=== PATIENT | female | born 2000 | race Caucasian/White ===

== ENCOUNTER 2022-01-12 03:15 | Outpatient (CLI) | payer BC, MEDICAID, SELFPAY ==
[2022-01-12] MEDS: Inhaler, Assist Device 1 EACH MC (08:44)
[2022-01-12] MEDS: Albuterol HFA 18 GM 200 PUFF INH IH (08:44)
--- NOTE | 2022-01-18 13:58 | W.PFT ---
Date of service: 01/12/22 Time of Service: 08:07 Pulmonary Function Test Result Requesting Provider Gaston Yung Indications: Dyspnea Interpretation Spirometry: There is no airflow limitation. There is no significant bronchodilator response. Impression Normal spirometry. Clinical Correlation therefore is recommended.
== END 2022-01-12 03:16 | disposition home or self-care (01) ==
LOC: RT 03:15
PROVIDERS: PCP Nurse Practitioner Family; Visit Provider Physician Assistant
DX: Z01.818 Encounter for other preprocedural examination (principal); R06.00 Dyspnea, unspecified
CPT/HCPCS: 94060

== ENCOUNTER → 2022-03-18 18:06 | Outpatient (CLI) | payer BC, MEDICAID, SELFPAY ==
--- NOTE | 2022-03-18 | DI.RAD_ITS ---
Exam(s) XR ANKLE RT COMPLETE EXAM: XR ANKLE RT COMPLETE CLINICAL HISTORY: FOOT PAIN ANKLE PAIN RIGHT. TECHNIQUE: 2D digital imaging was performed of the right ankle. Three images were obtained. AP, la teral and oblique views were obtained. COMPARISON: No exams were available for comparison FINDINGS: BONES: No acute fracture is present. No bony destructive lesion is seen. JOINTS: The ankle mortise is normally aligned. SOFT TISSUE: Normal. IMPRESSION: Unremarkable radiographs of the right ankle. DATA REPOSITORY: RADIATION DOSE DELIVERED:
--- NOTE | 2022-03-18 | DI.RAD_ITS ---
Exam(s) XR FOOT RT COMPLETE EXAM: XR FOOT RT COMPLETE CLINICAL HISTORY: RIGHT FOOT PAIN TWISTED. TECHNIQUE: 2D digital imaging was performed of the right foot. Three images were obtained. AP, obl ique and lateral views were obtained. COMPARISON: No exams were available for comparison FINDINGS: BONES: No acute fracture is present. No bony destructive lesion is seen. JOINTS: No dislocation present. SOFT TISSUE: Normal. IMPRESSION: Unremarkable radiographs of the right foot. DATA REPOSITORY: RADIATION DOSE DELIVERED:
--- NOTE | 2022-03-18 19:21 | DI.VRAD_ITS ---
PROCEDURE INFORMATION: Exam: XR Right Ankle Exam date and time: 03/18/2022 6:35 PM Age: 21 years old Clinical indication: Pain; Ankle; Right; Additional info: Rolled ankle TECHNIQUE: Imaging protocol: Radiologic exam of the Right ankle. Views: 3 or more views. COMPARISON: No relevant prior studies available. FINDINGS: Bones/joints: No displaced fractures or dislocations. Soft tissues: Mild soft tissue swelling. IMPRESSION: No acute findings. Dictated and Authenticated by: Paulino Dickerson MD. Ordering:SHAUNA Oliveira MD
--- NOTE | 2022-03-18 19:22 | DI.VRAD_ITS ---
PROCEDURE INFORMATION: Exam: XR Right Foot Exam date and time: 03/18/2022 6:37 PM Age: 21 years old Clinical indication: Pain; Foot; Right; Additional info: Rolled ankle and foot TECHNIQUE: Imaging protocol: Radiologic exam of the Right foot. Views: 3 or more views. COMPARISON: CR XR ANKLE RT COMPLETE 03/18/2022 6:35 PM FINDINGS: Bones/joints: Normal. Soft tissues: Normal. IMPRESSION: No acute findings. Dictated and Authenticated by: Paulino Dickerson MD. Ordering:SHAUNA Oliveira MD
== END ==
LOC: LBN 18:14 → DI 18:22
PROVIDERS: PCP Nurse Practitioner Family; Visit Provider Physician Assistant Medical
DX: M79.671 Pain in right foot (principal); M25.571 Pain in right ankle and joints of right foot
CPT/HCPCS: 73610; 73630